=== PATIENT | male | born 1945 | race Caucasian/White ===

== ENCOUNTER 2021-04-13 10:27 | Emergency (ER) | payer OTHER, MEDICARE ==
[~2021-04-13] VITALS: Ht 182.9 cm; Wt 68.0 kg
--- NOTE | ~2021-04-13 | EMS ---
[facility] [address] [place] [address] EMS Patient Care Report Name: LIDIA SMITH Room #: REG FÉLIX Childers#: [id number] Admission: 04/13/21 Attend Phys: Discharge: Date of : 43 Report #: [id number] THIS REPORT FOR: //name// Report Transmitted: 04/13/2021 10:25 EMS Care Summary [facility] MED-ACT Incident [id number] @ 04/13/2021 09:51 Incident Location [address] [place] [address] Patient LIDIA SMITH Male, 75 Years 1945 Patient Address [address] [place] [id number] Patient History Dementia, Patient Allergies No known allergies, Patient Medications Citalopram, Buspar, Ativan, Chief Complaint aggressive toward staff Disposition Transported No Lights/[place] Dispatch Reason Psychiatric Problem/Abnormal Behavior/Suicide Attempt Transported To [facility] Narrative Staff said the pt has been aggressive since last night around 1999. They said he has been yelling and hitting the wall in his room, stating that he wanted to be left alone to . The staff said the behavior continued this AM, so they gave the pt "2.5mg of Ativan" around 0900. The pt's said the pt has [facility] [address] [place] [address] EMS Patient Care Report Name: LIDIA SMITH Room #: REG FÉLIX Childers#: [id number] Admission: 04/13/21 Attend Phys: Discharge: Date of : 43 Report #: [id number] dementia and is normally confused. She said he had a similar aggressive outburst a few months ago and was taken to the hospital where they added some medication to treat the aggressive behavior. She said he hasn't had any aggressive behavior until last night. The pt denied any pain. The said the pt's dementia was getting worse and that he is sometimes difficult to understand. The pt knew his name, and former profession. He was confused as to the day and year. The pt's initially wanted the pt transported to [facility]. I explained they were "high volume" and she then suggested transport to [place] for evaluation. The pt was standing in the hallway inside the facility. [facility] and PD were with the pt. HPI, PMH, Exam from [facility]. The pt sat on the cot. Vitals. Cot - unit. En route: Vitals. Biocom to [place]. No orders req'd/rec'd. The pt rested comfortably during transport with no abnormal behavior. He was moved to ER#4. Care released to staff. Initial Vitals @10:20P: 69,R: 16,BP: 100/57,Pain: 0/10,GCS: 14,SpO2: 98,Revised Trauma: 12, @10:06P: 68,R: 16,BP: 102/68,Pain: 0/10,GCS: 14,Temp: 98.5F,Glucose: 104,SpO2: 97,Revised Trauma: 12, Assessments @10:17MENTAL:Confused,Person Oriented,SKIN:HEENT:Head/Face: No Abnormalities,Neck/Airway: No Abnormalities,LUNG SOUNDS:General: No Abnormalities,ABDOMEN:General: No Abnormalities,PELVIS//GI:No Abnormalities,EXTREMITIES:Left Arm: No Abnormalities,Right Arm: No Abnormalities,Left Leg: No Abnormalities,Right Leg: No Abnormalities,PULSE:NEURO:No Abnormalities, Impression Behavioral/psychiatric episode Procedures @10:20Surgical Mask on PatientResponse: Unchanged Timeline 09:50,Call Received 09:50,Psap Call 09:51,Dispatched 09:52,En Route 09:59,On Scene 10:01,At Patient 10:06,BP: 102/68 M,PULSE: 68,RR: 16 R,SPO2: 97 Ox,ETCO2: ,B,PAIN: 0,GCS: 14, 10:09,Depart Scene 10:20,Surgical Mask on Patient,Response: Unchanged [address] [address] EMS Patient Care Report Name: LIDIA SMITH Room #: REG FÉLIX Childers#: [id number] Admission: 04/13/21 Attend Phys: Discharge: Date of : 43 Report #: [id number] 10:20,BP: 100/57 M,PULSE: 69,RR: 16 R,SPO2: 98 Ox,ETCO2: ,BG: ,PAIN: 0,GCS: 14, 10:22,At Destination 10:35,Call Closed Disclaimer v1.1 Copyright 2020 [employer] This EMS Care Summary contains data elements from the applicable legal record (which may be displayed differently). It is designed to provide pertinent information for the following purposes: continuity of care, clinical quality, and state data reporting. The complete legal record is available to ED staff and administrators of the receiving hospital in [employer]'s Patient Tracker. All data is provided "as is."
[2021-04-13 11:48] LABS: ABSOLUTE NEUTROPHILS 5.7 thou/uL (1.4-8.2); BASOPHILS 0.7 % (0.0-2.0); EOSINOPHILS 1.3 % (0.0-3.0); HEMATOCRIT 41.7 % (42.0-52.0); HEMOGLOBIN 13.9 gm/dL (14.0-18.0); LYMPHOCYTES 13.8 % (24.0-44.0); MCH 30.1 pg (26.0-34.0); MCHC 33.4 g/dL (28.0-37.0); MCV 90.1 fL (80.0-100.0); MONOCYTES 8.5 % (1.0-8.0); PLATELET COUNT 174 thou/uL (150-400); POLYS 75.7 % (36.0-66.0); RBC 4.63 mil/uL (4.50-6.00); RDW 13.9 % (10.5-14.5); WBC 7.5 thou/uL (4.0-11.0)
[2021-04-13 12:01] LABS: ANION GAP 5 mmol/L (7-16); BUN 14 mg/dL (7-18); CALCIUM 8.9 mg/dL (8.5-10.1); CHLORIDE 106 mmol/L (98-107); CO2 31 mmol/L (21-32); GLUCOSE 101 mg/dL (74-106); POTASSIUM 4.8 mmol/L (3.5-5.1); SODIUM 142 mmol/L (136-145)
[2021-04-13 12:07] LABS: ALBUMIN 3.6 g/dL (3.4-5.0); DIRECT BILIRUBIN < 0.1 mg/dL (<0.1-0.2); SGOT 19 U/L (15-37); SGPT 21 U/L (16-63); TOTAL BILIRUBIN 0.5 mg/dL (0.2-1.0)
[2021-04-13 14:51] LABS: URINE BILIRUBIN NEGATIVE (Negative); URINE BLOOD NEGATIVE (Negative); URINE CLARITY CLEAR; URINE COLOR YELLOW; URINE GLUCOSE-RANDOM* NEGATIVE (Negative); URINE KETONES NEGATIVE (Negative); URINE LEUKOCYTES-REFLEX NEGATIVE (Negative); URINE NITRITE-REFLEX NEGATIVE (Negative); URINE PROTEIN (DIPSTICK) NEGATIVE (Negative); URINE UROBILINOGEN 0.2 E.U./dl (0.2-1.0)
[2021-04-13 14:59] LABS: AMP/METHAMP Negative (Negative); BARBITURATES Negative (Negative); BENZODIAZEPINES Negative (Negative); COCAINE Negative (Negative); METHADONE Negative (Negative); OPIATES Negative (Negative); PCP Negative (Negative)
[2021-04-13 17:29] VITALS: BP 135/61
--- NOTE | 2021-04-14 07:11 | EKG ---
[place] [address] [place] [address] ELECTROCARDIOGRAM REPORT Name: LIDIA SMITH Room #: DEP Alvarado#: [id number] Admission: 04/13/21 Attend Phys: Discharge: 04/13/21 Date of : 43 Report #: [id number] [facility] ED Test Date: 2021-04-13 Test Time: 11:04:12 Pat Name: LIDIA SMITH Department: Room: Gender: M Track Laborer: fara : 1945 Requested By: Rebecca Diego Order Number: [id number] MD: Luisito Matos Measurements Intervals Micro Rate: 66 P: 70 NV: 177 QRS: 52 QRSD: 96 T: 28 QT: 414 QTc: 434 Interpretive Statements Sinus rhythm Probable left atrial enlargement Low voltage, extremity leads No previous ECG available for comparison Electronically Signed On 04-14-2021 7:11:15 CDT by Luisito Matos [email or web address] <ELECTRONICALLY SIGNED> By: Luisito Matos MD, [facility] 04/14/21 0711 1104 1104 Luisito Matos MD, FACC /EPI
== END 2021-04-13 17:41 ==
LOC: ER 10:27
PROVIDERS: Emergency Medicine
DX: G30.9 Alzheimer's disease, unspecified (principal); F02.81 Dementia in other diseases classified elsewhere, unspecified severity, with behavioral disturbance

== ENCOUNTER 2021-04-13 17:58 | Inpatient (IN) | payer OTHER, MEDICARE ==
[~2021-04-13] VITALS: Ht 167.6 cm; Wt 58.6 kg
--- NOTE | 2021-04-14 01:34 | NUR ---
EFE CARE WAS RESUMES AT 1900. HE IS ALERT AND ORIENTED. PT AMBULATES HE IS ALERT AND ORIENTED TO SELF. ABLE TO VERABLIZE NEED CONFUSSED AND HE DENIES PAINS/SI/AVH/HI. HE IS UNABLE TO FOLLOW CUES. MEDS WERE VERIFED WITH DR. JOINER. BED IS LOW , ALARMED AND LOCKED. THE [facility] WAS NOTIFIED AND SHE ALREADY CAME AND VISIT WITH EFE. CODY WAS ANXIOUS AND PACING AT THE EARLY PART OF THE SHIFT. RESTING NOW ON RECLINER IN THE DAY AREA.Q 12 MINUTES CHECK IS ONGOING. CONTINUE CARE AND MONITOR.
[2021-04-14 06:12] LABS: CHOLESTEROL 224 mg/dL (<200); HDL CHOLESTEROL 63 mg/dL (>40); LDL CHOLESTEROL 149 mg/dL (<100); TC:HDL 3.6 Ratio (Not establshd); TRIGLYCERIDE 61 mg/dL (<150); VLDL 12 mg/dL (<40)
[2021-04-14 06:17] LABS: SERUM ASSESSMENT Clear
--- NOTE | 2021-04-14 07:34 | NUR ---
Bow Stapler called [facility] while patient was being evaluated in the ED. [facility] indicated to lyric writer that they were not planning on keeping the patient. They told lyric writer that they had emailed the this information earlier in the day. I clarified that it was a 30 day notice. They affirmed.
[2021-04-14 08:52] VITALS: BP 128/66
--- NOTE | 2021-04-14 11:45 | NUR ---
Pt admit to [facility] with dementia w/behavioral disturbance. TSH 0.255, A1c pending. On B12 and psych meds. Refused bkft this morning, only meal provided since admit. BMI 20.3. Will add Ensure Enlive once daily for additional kcal and protein. Low nutrition risk with interventions in place.
--- NOTE | 2021-04-14 12:51 | NUR ---
PT PACING THROUGH UNIT FOR MAJORITY OF THE SHIFT. HAS EXTREME FLIGHT OF IDEAS. IS REDIRECTABLE. PT AFEBRILE, ADEQUATE UOP, 1 BM, APPROPRIATE APPETITE AFTER BEING ENCOURAGED. PT AND HAVE BEEN THOUROUGHLY UPDATED AND EDUCATED ON PT CONDITION AND POC. PT SLOWLY PROGRESSING TOWARDS POC.
--- NOTE | 2021-04-14 17:24 | NUR ---
1530 ASSUMED CARE OF PATIENT, PATIENT WANDERING HUDSON AND DAYROOM TALKING TO SELF. UNABLE TO UNDERSTAND PATIENT, PATIENT WITH FLIGHT OF IDEAS. 1720 PATIENT SITTING AT TABLE EATING DINNER FEEDING SELF. WILL CONTINUE TO OBSERVE
[2021-04-14 19:40] VITALS: BP 116/62
[2021-04-14 23:06] LABS: GLYCOHEMOGLOBIN (HGB A1C) 6.1 % (4.8-5.6)
[2021-04-15 09:03] VITALS: BP 150/75
--- NOTE | 2021-04-15 11:00 | NUR ---
APROACHED IN ROOM FOR AM MEDS-REFUSES MEDS-REFUSES TO COME OUT TO EAT BREAKFAST-APPEARS TO NOT UNDERSTAND VERBAL DIRECTION OR INFORMATION PROVIDEDBY NURSING [id number] OVER IN BED AND REFUSED TO CONVERSE WITH THIS NURSE ANY LONGER.APPROX 25 MINUTES LATER FOUND NAKED INSIDE A MALE PEERS ROOM-HAD URINATED ON FLOOR AND HAD BM IN BRIEF WHICH HE HAD REMOVED AND PLACED ON PEERA BED-WAS FOUND ATTEMPTING TO GET INTO BED WITH MALE PEERS AND WHEN STAFF ATTEMPTED TO STOP HIM FROM CRAWLING OVER SIDE RAIL INTO BED SWUNG AT NURSE WITH CLOSED FIST-REFUSES TO ALLOW INCONTINENT CARE AND REQUIRED ASSIST OF THREE STAFF TO CLEAN BM OFF OF PERINEAL AREA AND PUT ON CLEAN PANTS AND BRIEF.
--- NOTE | 2021-04-15 14:43 | NUR ---
REFUSES TO ALLOW STAFF TO ASSIST WITH AMBULATION OR TO USE ROLLER WALKER PROVIDED-GAIT IS UNSTEADY AND JUDGEMENT POOR-VERY IMPULSIVE-ATTEMPTING TO CRAWL OVER BACK OF COUCH AND WHEN STAFF ATTEMPTS TO INTERVENE APPEARS TO NOT HEAR VERBAL INSTRUCTIONS-ALSO TURNS HEAD TOWARD STAFF BUT STATES CAN'T SEE NURSE-WHEN ASKED ABOUT THIS STATES "HE HAS TUNNEL VISION-IT IS PART OF DEMENTIA" DR JOINER ON UNIT AND CONSULTED RE FALL RISK-REFUSAL TO FOLLOW FALLS PRECAUTIONS-OR SIT IN CHAIR- STATES WOULD PREFER WE USE ATIVAN VS LAP CHANEL TO RESTRAIN IN CHAIR. ATIVAN 0.5MG GIVEN PO PRN AT 1445 FOR INCREASED RESLESSNESS,AGITATION.CHAIR ALARM PLACED X3 SOON STAFF WALKS AWAY STANDS UP AND MOVES TO ANOTHER CHAIR WHEN STAFF ATTEMPTED TO EXPLAIN FALLS RISK AND OUR CONCERNS RE DARIEN STATES "I DON'T CARE GET IT AWAY FROM ME"
--- NOTE | 2021-04-15 14:47 | NUR ---
HALEY spoke with pt's who said [facility] did not give a set date in her email in which they dismissed pt from their facility. She said it simply says that pt cannot return. HALEY advised their are laws that govern how [place] are to proceed and asked if she would like SW to reach out to the [facility]. She said yes. HALEY also explained that she noticed in pt's chart that he has financial dpoa and living will docs, but not a healthcare dpoa doc. Kamilah said she has a copy of that doc and will bring it. HALEY contacted the [place] ombudsman office and was advised that Margret Choi is the ombudsman in that area and her number is [phone] and email is . HALEY called Margret. No answer. HALEY left a msg. HALEY emailed Margret and was advised that email was incorrect. HALEY Team will continue to follow pt during her stay on this unit.
[2021-04-15 21:00] VITALS: BP 139/75
[2021-04-16 09:38] VITALS: BP 124/70
[2021-04-16 10:01] VITALS: BP 124/70
--- NOTE | 2021-04-16 11:19 | NUR ---
1100 RESUMMED CARE FROM OVERNIGHT SHUFT THIS AM, PATIENT WANDERING AROUND DAY ROOM. PATIENT ALERT ORIENTED TO SELF ONLY PATIENT UNABLE TO TELL ME ABOUT SI/HI/AH/VH AT PRESENT. PATIENT HAS COGNITIVE DO PATIENT ATE BREAKFAST PATIENT SLAPPED HIS PILLS ONTO THE TABLE. I CRUSHED HIS MEDICATION AND HE TOOK THEM IN YOGART. PATIENTS ABDOMEN SOFT BOWEL SOUNDS PRESENT PATIENTS LUNGS CLEAR. PATIENT HAD VISIT WITH THE VISIT WENT WELL, PATIENT IS REDIRECTABLE WILL CONTINUE TO MONITOR PATIENT FR SAFETY AND BEHAVIORS.
[2021-04-16 20:33] VITALS: BP 135/73
[2021-04-16 21:42] VITALS: BP 135/73
--- NOTE | 2021-04-16 23:55 | NUR ---
At approximately 2278-0341 EVS notified nurse the pt was on the floor. Two nurses went and assessed the pt. Pt is alert but not oriented. Head to toe assessment completed, no visual bruising, moves all extremities, denies pain. Resistant to nurses getting him. Pt was able to adjust his weight and lift himself off of the floor, vital signs taken @2218 bp 103/61, 64, 18, 96.3, Vitals taken 1 hour later are 144/76, 74, 19, 96.3. PCT and nurse assisted pt to bed, Second dose of trazadone not given due to drowsiness and pt is now very unsteady on his feet. Xin TAVARES notified of non injury fall, recommend to continue monitoring him and to notify of any changes. Left a voice message for pt regarding fall.
--- NOTE | 2021-04-17 03:09 | NUR ---
04/16/21 - Pt is alert and disoriented, garbled phrases, very difficult to direct. Pt usually does pretty good with taking his medications. Today he was fixated on the medication cup even after he took his medications. Pt likes to wander the halls. Pt was offered a snack "ice cream" he initially wanted the snack but would not sit down to eat it. Pt was wandering into other pt rooms again very difficult to redirect. Pt after night medications was drowsy but was refusing to lay down or sit down. eventually about 2300 pt was okay with being put to bed and has been sleeping. requires frequent monitoring.
--- NOTE | 2021-04-17 07:49 | NUR ---
Returned telephone call to Marie pt spouse, initially thought she was calling about the pt's fall last night since I left a message last night. She states "no I didn't realized he had a fall" discussed what happened with this fall and that he wasn't hurt. Discussed that he was able to sleep. Spouse was concerned about his spitting up mucus and that it thick. 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 Pt also has a hx of chronic sinusitis. The mass I believe was discovered by the CT scan, would like pt to have CT scan of head. Discussed that I would relay this information the the
[2021-04-17 08:00] VITALS: BP 147/76
--- NOTE | 2021-04-17 15:55 | NUR ---
pt's requested to have the hospitalist call her. rn spoke with dr. llanes on his rounds and gave him them message. rn just spoke with pt's on telephone and updated her of dr. llanes's new orders. rn gave pt. update. pt's states she will be here to see the patient for visiting hours at 1600.
--- NOTE | 2021-04-17 16:04 | NUR ---
SW received a call from ANGÉLICA Knox with [employer] [phone] re: pt's status. SW provided a brief update. SW team will remain available while on this unit.
[2021-04-17 19:30] VITALS: BP 108/61
[2021-04-17 20:19] VITALS: BP 108/61
--- NOTE | 2021-04-18 00:46 | NUR ---
Assumed care on 04/17/21 @ 1900, ambulating with a steady gait, resists sitting down for personal safety, had a fall on 04/16, Silver score 65, high fall risk. Exit seeking and resists redirection. First Trazadone given @ 2100 and continues to be awake @ 2150, second dose of Trazadone provided, as scheduled and PRN Tylenol 650 for general discomfort. Continues to ambulate @ 22:30 and retires to bed @ aproximately 22:45. Bed in low position, bed alarm set, will continue to monitor for safety and comfort.
[2021-04-18 08:46] VITALS: BP 119/65
--- NOTE | 2021-04-18 13:07 | NUR ---
HALEY received a call from Shelby with [employer] who said in no way have they issued to pt a 30 day notice. She said their health care administrator was on leave when pt was sent out to the ED and advised staff that they will not be handling his case this way. They will be accepting pt back unless they cannot handle his behaviors they see in his updates. They will then identify new placement options. She did not have the fax number on her as she was out in the field so HALEY offered to send an email to her email at [email or web address]. Shelby will then respond with the fax number to receive updates. Her number is [phone]. HALEY contacted pt's and provided this update. Although she is not pleased with the facility, she said she is grateful that they have changed their opinion. HALEY reiterated the law to and her rights. She thank you. She also advised that pt hates ice cream, but loves chocolate. She advised that his meds be given in chocolate pudding. HALEY provided this update to pt's nurse. The email Shelby gave came back invalid. HALEY contacted Shelby who gave the email of [email or web address]. HALEY sent an email to her. HALEY Team will continue to follow pt during his stay on this unit.
--- NOTE | 2021-04-18 16:56 | NUR ---
Assumed pt care at 0700. pt was in the day room agitated. pt was confused, unable to answer assessment questions. disoriented x4. Assessments completed, vss. No sign of si/hi noted upon assessments. No sign of acute distress noted upon assessments. took med crushed with ice cream. pt spit some of his meds out. Pt was agitated and combative with staff. pt was redirected. pt continued to be disruptive with other pt. staff redirected pt and he got aggressive, hitting and kicking staff. At 1415 Dr Joiner was notified. 0.5mg PO order of Lorazepam was obtained and administered. AT 1550 pt BECAME AGGRESSIVE, HITTING AND KICKING STAFF. ALL efforts to redirected pt was abortive. IT TOOK 3 STAFF TO RESTRICT PT FROM HITTING STAFFS. DR JOINER was notified of pt behavior.1619 AN order of 0.25mg was obtained and administered. At this time pt is in the day room eating dinner. Will continue to monitor.
[2021-04-18 19:51] VITALS: BP 95/74
--- NOTE | 2021-04-18 23:44 | NUR ---
Assumed care on 04/18/21 @ 1900, in the day room, ambulates without a devise with a fairly steady gait. Noted to have a fall on 04/16, so is a high fall risk, with a Silver score of 65. Cooperated with assessment, VSS HRRR, Breath sounds CTA bilat, ABD sounds N x 4Q. Not able to answer mental health questions D/T dementia. Compliant with medication administration, ambulated to bedroom with x1 assist @ HS. Bed in low position, bed alarm set, will continue to monitor as per unit protocol.
[2021-04-19 09:23] VITALS: BP 130/69
--- NOTE | 2021-04-19 12:24 | NUR ---
Alert and orientated to name only. Denies SI/HI. Confused speech. Breath sounds clear. Reg HR auscultated. Color pink with brisk capillary refill and palpable peripheral pulses. No edema noted. Brief dry. Active bowel sounds over soft, flat abdomen. No behaviors noted this AM. here visiting. Appropriate questions and concerns.
--- NOTE | 2021-04-19 17:38 | NUR ---
Phone message from Pt's , Marie Flower Phone call with Mrs. Flower. Mrs. Flower is working with an advocate in the search for a new placement for her . Mrs. Flower is concerned that although the current placement, [facility], has caring staff, administration does not communicate with her. Mrs. Flower is overwhelmed but would like for additional placement options to be provided to her. Email to Mrs. Flower ([email or web address]) with additional placement options as well as Medicare.gov and [facility] websites.
[2021-04-19 19:52] VITALS: BP 124/72
--- NOTE | 2021-04-20 05:57 | NUR ---
04-19-21 CARE TRANSFERRED 1900 OBSERVED PT SITTING IN RECLINER IN DAY ROOM. LATER PT AAOX1, VSS, RR EVEN AND NONLABORED ON RA, PT LUNG SOUNDS CLEAR/DIMINISHED, HT RR, ABD ACTIVE AND SOFT. PT DENIES PAIN AND SEEN ZERO S/S OF PAIN. OBSERVED NO SI/HI BEHAVIORS. PT HAS REMAINED CALM AND COOPEATIVE THROUGHOUT NURSING ASSESSMENT. DURING MEDICATION ADMIN PT HAD NO DIFFICULTIES TAKING MEDICATION CRUSHED IN PUDDING. PT WILL CONTINUE TO BE MONITOR PER [facility] PROTOCOL.
[2021-04-20 08:29] VITALS: BP 114/60
--- NOTE | 2021-04-20 11:14 | NUR ---
RT Progress Note- Antonio' participation in the milieu and recreation therapy groups has been very minimal since admission. While Antonio has been passively present in groups, he is unable to engage d/t poor focus and inability to follow tasks. Antonio has not been accepting of 1;1 attempts for independent leisure at this time. OVERHEAD CRANE INSPECTOR will continue to encourage Antonio' passive participation efforts and will provide independent leisure as he tolerates.
--- NOTE | 2021-04-20 19:30 | NUR ---
PATIENT'S (SHE SMITH) NOTIFIED ON NUMBER [id number], AND NOTIFIED OF THE SUSPENSION OF THE MORNING VISITATION AFTER TOMORROW RELATED TO THE COVID SURGE IN THE COMMUNITY PER HOSPITAL PROTOCOL.
--- NOTE | 2021-04-20 19:48 | NUR ---
TOOK AM DEPAKOTE SRINKLES MIXED WITH ICE CREAM 0900 ATIVAN 0.5 CRUSHED AND WATER PUT IN PILL TRACTOR TRAILER TECHNICIAN D/T VERY SMALL AMOUNT OF MED AFTER BEING CRUSHED IN ATTEMPT TO ENSURE THAT PT GOT FULL DOSE-DID START TO SWALLOW WHEN GIVEN BUT THE SPIT OUT ONTO FLOOR. AT 1050 ALERTED BY FORMULA WEIGHER PT HAD INCREASED AGITATION AND RESTLESSNESS-GFETTING UP AND DOWN AND ATTEMPTING TO WALK ON OWN WHEN FORMULA WEIGHER WAS WALKING WITH HIM TO BATHROOM HE BEGAN TO YELL THAT HE DID NOT WANT HER ASSISTANCE AND STRUCK HER ,ALSO STRUCK 2ND DYED YARN OPERATOR WHO ARRIVES TO OFFER ASSISTANCE-SECURITY CONTACTED AND ATTEMPTING TO HIT AND BITE SECURITY GUARDS DR JOINER CONACTED AND GIVEN ATIVAN 0.25 MG IM AT APPROX 1200. LITTLE IMPROVEMENT NOTED IN BEHAVIORS AFTER IM GIVEN-AND CONTINUED THROUGHOUT REST OF PM TO REQUIRED CONSTANT SUPERVISION TO PREVENT FROM GETTING UP ON OWN-ALL FALL PRECAUTIONS IN PLACE INCLUDING CHAIR ALARM-YELLOW TSHIRT ETC. VS STABLE-APPETITE POOR-REQUIRES FEEDING AT MEALS -SITS WITH EYES CLOSED AND WILL NOT OPEN THEM DESPITE STAFF ASKING HIM TO. WILL AT TIMES RESPOND APPROPRIATLY BUT CONVERSATION FOR MOST PART IS RAMBLING AND NON-GOAL DIRECTED AND DID APPEAR TO BE RESPONDING TO AUDITORY HALLUCINATIONS APPEARS TO BE TALKING TO UNSEEN OTHERS INCLUDING HIS MOTHER AND FATHER. IS ATAXIC WHEN UP WALKING FALLS PRECAUTIONS IN PLACE. WAS COMBATIVE
[2021-04-20 20:03] VITALS: BP 124/64
[2021-04-21 06:00] LABS: ALBUMIN 3.3 g/dL (3.4-5.0); CALCIUM 9.1 mg/dL (8.5-10.1); CREATININE 0.9 mg/dL (0.7-1.3); POTASSIUM 3.9 mmol/L (3.5-5.1); TOTAL BILIRUBIN 0.5 mg/dL (0.2-1.0); TOTAL PROTEIN 6.9 g/dL (6.4-8.2)
[2021-04-21 10:09] VITALS: BP 128/63
--- NOTE | 2021-04-21 13:14 | NUR ---
Alert and orientated to name only. Denies SI/HI. Resistant to getting out of bed and then when he stood he was off the bed but remained in a seated position and was resistant to sitting in chair. He finally sat in chair with alot of direction and encouragement. Breath sounds clear. Reg HR auscultated. Color pink with brisk capillary refill and palpable peripheral pulses. Brief dry. Active bowel sounds over soft, flat abdomen. Attempted to finisher hand day room and was unsteady. When attempted to be redirected by SENIOR HR MANAGER he became combative and was placed back in chair by 3 staff members as reported by RN Kody. Brought out of day room when he calmed down for approximately 10 min and then attempted to get out of chair and sit on leg rest. Required alot of assistance and redirection to ambulate first to bathroom where he refused to sit down and then to his bed. Dr Pascal notified. 0.25 mg Ativan given IM per R deltoid per order. Sleeping without s/o distress. here visiting requesting to see pt. Explained situation and she requested that a cool cloth be placed on his forehead prior to interacting with pt as that would calm him down. Explained that instances of him becoming combative were spontaneous and that he was very cooperative with meds and nasal spray this AM. Explained that I could let her see pt but that visitors needed to be supervised in pt rooms. She stated that Rajwinder had let her in pt room the previous day. Spoke with Rajwinder and compromise was that she could visit with supervision since this was last day of visiting d/t rise in [facility]. She visited for approximately 45 min as pt slept. Left note for Dr. Pascal. At approximately 1200 went to room to get chair and pt was sitting at foot of bed and attempting to tip over chair. Escorted to dining room with walker and some assistance. Ate part of lunch independently before falling asleep.
--- NOTE | 2021-04-21 13:38 | NUR ---
Nutrition: at follow up pt noted to have poor appetite and requiring feeding. Intake appears fair-good, avg of at least 50-75% recent meals, 100% of recent snacks/supplement recorded. No new wt this week. Albumin 3.3. Meds reviewed. Last BM 04/17. Continue POC>. Assess at low nutrition risk at this time. Recommend obtain/record current wt.
--- NOTE | 2021-04-21 17:36 | NUR ---
Phone message received from Alona Mundo ([phone]). The SW spoke to Mrs. Flower in person regarding the pt. Mrs. Flower requested hospice information be emailed to her. Email received from Darian Tam, advocate for Mrs. Flower, requesting a time to schedule a conference regarding discharge for the pt.
--- NOTE | 2021-04-22 05:11 | NUR ---
04-21-21 CARE TRANSFERRED 0 OBSERVED PT SITTING IN DAY ROOM. LATER PT AAOX1, PT REFUSED VS, PT DENIES SI/HI AND PAIN, BUT OBSERVED PT FACICAL GRIMMENCING AND RESTLESS AND IRRITABLE. OBSERVED NO SI/HI BEHAVIORS. LATER PT BECAME AGITATED AND GRABBING AND HITTING STAFF, HCP CONTACTED AND ORDERS RECEIVED AND ADMIN. PT THEN WAS MEDICATION COMPLIANT AND HAD NO DIFFICULTIES TAKING CRUSHED IN YOGURT, PT ATE 50% AND 100% OF HS SNACK. LATER NOTED PT WAS CALMER AND PT WAS REPOSITION IN BED, LOWEST POSITON, LOCKED AND ALARM ON. LATER PT RESTLESS AND IRRITABLE DURING CARES, AND PT WAS REPOSITION AND BROUGHT TO DAY ROOM. PT DENIED PAIN, BUT NOTED S/S OF PAIN WITH RESTLESSNESS AND FACIAL GRIMMENCING. OF NOTE, Max JOINER MD REPORTED THAT PT DOES NOT WANTED PT ON TRAMADOL AND REQUESTED THE LOWER DOSAGE ON ATIVAN. PT WILL CONTINUE TO BE MONITOR PER [facility] PROTOCOL.
[2021-04-22 10:24] VITALS: BP 131/77
--- NOTE | 2021-04-22 16:54 | NUR ---
Assumed patient care by 0700, sitting in the dayroom quiet, ate breakast, vss, lungs clear, bs active, took medication crushed. patient's called for update "said I don't want him put on or taking pain medication, he has never complained of pain". slept most of the day on the chair, pericare done, no si/hi was observed, unable to verbalized needs. will continue to monitor patient.
--- NOTE | 2021-04-22 17:23 | NUR ---
Email received from Shelby of [facility] requesting update for pt. Return email sent stating updates will be faxed today. Shelby (ph: [phone]) also left a message requesting the updates be sent by 11:30am as she has a phone call with the pt.'s . The SW called Shelby and gave a v verbal update on the pt. The SW informed Shelby the updates will also be faxed. Fax sent to Shebly at [facility] - Nursing notes and medication update for the pt. Email from pt's , Marie Flower, stating the SW did not need to send any hospice recommendations as she had selected [facility]. Email also stated that Darian Tam, senior clinical study manager, would get in touch. The SW replied to Marie's email and let her know that the SW would get in touch with Mr. Tam. Email to Mr. Tam regarding the pt and scheduling a time to conference. Phone call from Mr. Tam and Marie Mundo. Both were informed that it did not appear that the pt. had had any noted displays of aggression today. Mr. Tam and Mrs. Flower will follow up with the SW, Sheryl.
[2021-04-22 19:12] VITALS: BP 138/68
--- NOTE | 2021-04-22 23:14 | NUR ---
Patient care assumed at 1900, patient sitting in gerichair in day room at that time. Took meds crushed in ice cream without difficulty. No c/o pain or discomfort. Patient taken to bed, incontinent of urine, annabelle care provided and new brief applied. Made comfortable in bed, and then became restless and attempting to get out of bed unassisted. Assisted back into gerichair and brought out to day area beside staff. Patient resting with eyes closed at this time.
[2021-04-23 08:00] VITALS: BP 129/72
--- NOTE | 2021-04-23 11:32 | NUR ---
PATIENT CARE ASSUMED 0700, IN HIS ROOM SLEEPING REFUSED TO COME OUT FOR BREAKAST,VSS, LUNGS CLEAR, BS ACTIVE,RR EVEN NONLABORED ON ROOM AIR, ALERT AND DISORIENTED TO PLACE, DAY AND TIME, TOOK HIS MEDICATION CRUSHED AND MIX WITH APPLE SOURCE. PATIENT IS INCONTINENT OF BM AND URINE, HIS CALLED FOR UPDATE, HE DENIES SI/HI, WILL COTINUE TO MONITOR.
--- NOTE | 2021-04-23 18:33 | NUR ---
Patient was combative and was punching staff, droctor was contacted, one time order of Geodon 0.75ml given, patient was calm and fell asleep 15mins after the im.
[2021-04-23 19:22] VITALS: BP 131/69
--- NOTE | 2021-04-23 23:15 | NUR ---
RESUMED PATIENT CARE AT 1900, PATIENT SITTING IN JORGE CHAIR IN DAY AREA. TOOK MEDS CRUSHED IN ICE CREAM WITHOUT DIFFICULTY, PATIENT QUIET AND SLEEPY. PLACED IN BED AND PROVIDED PERICARE. NO BEHAVIORS NOTED THIS EVENING. WILL MONITOR.
[2021-04-24 09:40] VITALS: BP 125/73
--- NOTE | 2021-04-24 12:29 | NUR ---
PATIENT CARE ASSUMED AT 0700- APPROACHED IN ROOM BUT WAS SLEEPING SOUNDLY. WOULD NOT RESPOND WHEN ATTEMPTED TO AROUSE FOR BREAKFAST AND MORNING MEDICATIONS. AWKE AROUND 10 AM AND ESCORTED TO [place] [place]. ATE VERY LITTLE - MEDICATIONS GIVEN AT THIS TIME CRUSHED IN VANILLA PUDDING. TOLERATED WELL - BECAME RESTLESS IN CHAIR AND TRIED TO CLIMB OUT OF IT. BECAME IRRITATED WHEN ATTEMPTIG TO REDIRECT - FINALLY SETTLED DOWN ONCE AGAIN - PATIENT CONFUSED - ALERT TO SELF - UNABLE TO UNDERSTAND REDIRECTION. THOUGHT PROCESSES SCRAMBLED RAMBLING ON - SPOKE WITH WHO CALLED IN INTERIM. WAS UPSET WITH ADMINISTRATION OF GEODON NIGHT BEFORE FOR COMBATIVENESS - ADVISED WOULD LET DR. JOINER KNOW TO CONTACT HER ON Sunday04/25/21 - PATIENT CURRENTLY IN [facility] [place] SITTING QUIETLY IN JORGE CHAIR. WILL CONTINUE TO MONITOR FOR SAFETY AND AGITATION AND ADDRESS ACCORDINGLY.
[2021-04-24 19:41] VITALS: BP 109/92
[2021-04-24 20:20] VITALS: BP 109/92
--- NOTE | 2021-04-25 03:29 | NUR ---
PATIENT SAT UP IN JORGE CHAIR AT A TABLE THIS EVENING. HE HAS BEEN CALM FOR THE MOST PART THIS EVENING. HE DID GET COMBATIVE WITH CARES AT ONE POINT AND WAS YELLING AND HITTING STAFF. PATIENT WAS RESTLESS AT THIS POINT AND STAFF X 2 WALKED PATIENT AROUND THE UNIT 3 TIMES AND BACK TO JORGE CHAIR. THIS DID HELP TO CALM HIM. PT WAS LATER TAKEN TO ROOM AROUND 2AM FOR INCONTINENCE CARE AND TO BE LAID DOWN FOR BED. NO COMBATIVENESS THIS TIME. MOISTURIZING CREAM APPLIED TO INNER THIGHS WHERE SCROTUM IS RUBBING AND SHOWING SLIGHT REDNESS. PT HAS BEEN SLEEPING IN ROOM SINCE 0200 WITH ROUTINE ROUNDS AND INCONTINENCE CHECKS. PT TOOK HIS MEDS CRUSHED IN PUDDING. NO SIGNS OF SI/HI/AVH NOTED. PT IS A/0X1. CONTINUING TO MONITOR.
[2021-04-25 08:53] VITALS: BP 90/65
--- NOTE | 2021-04-25 16:44 | NUR ---
HALEY and Dr. Wilkinson contacted pt's Marie and provided to her an update including pt's behaviors and medication regimen. She voiced her concerns about pt getting Geodon on Sunday. HALEY explained to her that pt was punching staff and that they cannot allow pt's to be dangerous or unsafe on this unit. Dr. Wilkinson discussed with her meds that can help pt and control his aggression. Marie said that pt has tried Seroquel and had an adverse reaction to that med. Dr. Wilkinson agreed that he will try an increase in Depakote, and if that does not show improvement in a day or 2 then he plans to begin him on Olanzipine. He said that if it does not work he will then move to [facility]. He explained how anti-psychotics can help people dementian; including those suffering from Lewy Body. HALEY also explained that placement is not likely to accept pt unless he is properly medicated. She said ok. SW agreed to do a zoom meeting on Sun so she can interact with her . HALEY sent her an email with a 11am meeting time. HALEY received a call from [facility] asking for discharge plans. HALEY explained he is not ready and she is not sure that pt will qualify for hospice The rep agreed and said she reviewed pt's dx and knew he would need more markers to qualify for services. Allan Kan asked HALEY to fax a referral to [phone]. HALEY team will continue to follow pt during his stay on this unit.
--- NOTE | 2021-04-25 17:40 | NUR ---
Assumed pt care at 0700. Pt was alert and oriented to self. confused, combative, hitting and kicking staff. Unable to assess si/hi. No sign of si/hi noted. No c/o pain at this time. Staff assisted pt with meals. Pt ambulates with a terry chair. Med were crushed, mixed with pt oat meal. No sign of acute distress noted upon assessments. at 1700, pt was uncooperative with care. pt was aggressive hitting and pulling on staff hair. 1732 Dr carr was notified. Geodon 10mg IM was obtained and administered for aggression and combative behavior. At this time pt is sitting in the day room clean. Will continue to monitor.
[2021-04-25 19:52] VITALS: BP 149/86
--- NOTE | 2021-04-25 21:58 | NUR ---
PATIENT CARE ASSUMED AT 1900. PATIENT IN GERICHAIR IN DAY AREA, AWAKE, RELAXED. PATIENT'S MEDS GIVEN CRUSHED IN ICE CREAM, TOOK WITHOUT DIFFICULTY AND FED THE REMAINDER OF THE ICE CREAM. NO S/S OF DISTRESS OR DISCOMFORT. PATIENT HAS HAD NO COMBATIVENESS/AGGRESSION THUS FAR THIS EVENING. WILL CONTINUE TO MONITOR.
[2021-04-26 09:35] VITALS: BP 118/69
--- NOTE | 2021-04-26 12:38 | NUR ---
PATIENT CARE ASSUMED AT 0700 - PATIENT IN BED SLEEPING AT THIS TIME. UNABLE TO AROUSE. PATIENT SLEPT TILL AFTER 11 AM AND THEN ADMINISTERED SCHEDULED SEROQUEL ALONG WITH MORNING MEDICATIONS. TOLERATED WELL IN PUDDING. PATIENT THEN ASSISTED UP FOR LUMCH. KEPT EYES CLOSED - REFUSED TO EAT - VERY DIFFICULT - TALKED TO SELF AND WAS REACHING AROUND - TRYING TO REACH FOR UNSEEN OBJECTS. CONSUMED ONLY 10 PERCENT OF HIS LUNCH AND THAT WAS WITH ALOT OE ENCOURAGEMEN. PATIENT VERY SLEEPY - SITING IN JORGE GUIDO WITH EYES CLOSED. TOOK FEW SIPS OF APPLEJUICE BUT THAT WAS ALL STAFF WAS ABLE TO FEED TO HIM. WILL CONTINUE TO MONITOR PATIENT FOR SAFETY AND ENCOURAGE DRINKING AND EATING AND ADDRESS ANY CONCERNS THAT PATIENT MAY HAVE ACCORDINGLY.
--- NOTE | 2021-04-26 14:08 | NUR ---
RT Progress Note- Antonio has not been an active member of the milieu or recreation therapy groups since his admission to the unit. Antonio is unable to maintain focus in larger settings and struggles to complete tasks as directed. When approached for 1;1 leisure, Antonio does not maintain conversation or eye contact. CODING COMPLIANCE SPECIALIST will provide appropriate sensory activities and offer leisure as he tolerates.
--- NOTE | 2021-04-26 17:46 | NUR ---
HALEY and Dr. Wilkinson contacted Mrs. Alona Flower via phone. Mrs. Flower expressed during this call that the pt. would not be [facility]. She stated she had worked everything out with the SW, Sheryl, and that the pt. would be moved to either [facility] or [facility]. When questioned by Dr. Wilkinson about which place had accepted him, Mrs. Flower acknowledged not having visited [facility] and that [facility] had not seen the pt. at this time. The SW stated she would send referrals to those facilities; however, Mrs. Flower stated that Mr. Tam, advocate, would handle everything. Dr. Wilkinson reviewed medication with Mrs. Flower and the plan moving forward. Email from Mrs. Flower inquiring about virtual visitation scheduled for tomorrow and if her daughter would be able to attend. The SW replied back that the SW, Sheryl, would send a zoom link and that the daughter would be able to attend and would just need the link. A voice message was received from Alona Flower. An email was later received thanking for the return email. Mrs. Flower further stated in the email that she would need a nuerologist LOLLY for the pt. and that Dr. Wilkinson letting her know that a neurologist not being assigned is unacceptable for her. HALEY forwarded Mrs. Flower' email to Dr. Wilkinson, Rajwinder Chairez and Sheryl Dean.
[2021-04-26 19:53] VITALS: BP 135/74
--- NOTE | 2021-04-26 22:33 | NUR ---
PATIENT CARE RESUMED AT 1900, SITTING IN JORGE CHAIR AT THAT TIME. NO S/S OF DISTRESS OR DISCOMFORT, QUIET, APPEARS RELAXED. RESPONDS VAGUELY TO ASSESSMENT QUESTIONS, DENIES PAIN. TOOK MEDS CRUSHED IN ICE CREAM, NO DIFFICULTY. NO BEHAVIORS NOTED THIS EVENING. ABLE TO FOLLOW SHORT SIMPLE COMMANDS TO SOME DEGREE, BUT NOT ALWAYS. ON Q12 MINUTE SAFETY CHECKS AND FALL PRECAUTIONS.
[2021-04-27 09:26] VITALS: BP 130/67
--- NOTE | 2021-04-27 11:27 | NUR ---
HALEY set up a Zoom meeting for pt to complete with his and daughter today. HALEY was updated by [facility] Director that she and Dr. Wilkinson will be meeting with Marie and her sister today at 1300. HALEY team will continue to follow pt during her stay on this unit.
--- NOTE | 2021-04-27 12:50 | NUR ---
PATIENT WAS IN BED ASLEEP WHEN CARE ASSUMED, WHEN AWAKEN, HE WAS ASSISTED TO THE DAYROOM BY STAFF FOR BREAKFAST. HE CONSUMED 75% BREAKFAST WITH STAFF ASSIST. PATIENT TOOK MORNING MEDICATION CRUSHED IN ICECREM WITH NO DIFFICULTY. PATIENT IS FORGETFUL, PLEASANTLY CONFUSED, MUMBLES WORDS, RESPONDS TO INTERNAL STIMULI, TALKS TO SELF, AND UNSEEN OTHERS. HE DENIES SUICIDAL IDEATION, UNABLE TO APPROPRIATELY RESPOND TO FURTHER ASSESSMENT QUESTIONS DUE TO CONGNITIVE IMPAIRMENT. INCONTINENT CARE PROVIDED BY STAFF. AFFECT IS FLAT/BLUNTED, MOOD IS EUTHYMIC. NO AGITATION OR AGGRESSIVE BEHAVIOR NOTED AT THIS TIME. NO SIGN OF ACUTE DISTRESS NOTED, WILL CONTINUE TO REDIRECT, AND MONITOR FOR SAFETY.
--- NOTE | 2021-04-27 15:23 | NUR ---
Met with patient's and sister along with Dr. Wilkinson todiscuss patient's treatment goals, options and dicharge plans. had brought a list of questions and requests. She was requesting that a neurologist be consulted on the patient. Dr. Wilkinson explained that he was not going to do this as there was not a specific reason to consult one. She was not in agreement, but understood. 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 I will have a sign placed in patient room requesting he is wearing his glasses at all times. will order a PT consult to explore the possibility of his being able to walk. If gait is too impaired, this may not be a possibility and this was explained to .Dr. Moreno reviewed the medications he was on and made some changes. An OT consult was declined. Discussion about moving forward with possible d/c date and referrals with explanation of holding off until there was at least 72 hours of no behaviors. voiced understanding.
[2021-04-27 20:18] VITALS: BP 123/71
--- NOTE | 2021-04-28 04:25 | NUR ---
PATIENT CARE RESUMED AT 1900, PATIENT SITTING IN DAY AREA AT THAT TIME, WEARING GLASSES. QUIET AND RESTLESS. PATIENT LATER ASSISTED TO BED, PROVIDED LANNY CARE - INCONTINENT OF BOWEL AND BLADDER. PATIENT BECAME RESTLESS IN BED AND BROUGHT BACK INTO THE DAY AREA FOR CLOSE SUPERVISION PATIENT IS IMPULSIVE AND DOES ATTEMPT TO GET UP WITH VERY UNSTEADY WEAK GAIT. PATIENT AGAIN TRIALED BACK IN HIS BED, BUT AGAIN BECAME RESTLESS AND BROUGHT BACK OUT TO DAY AREA WHERE HE HAS REMAINED RELAXED AND QUIET IN JORGE CHAIR. IT SEEMS HE DOES BETTER WHEN AROUND OTHER PEOPLE THAN BY HIMSELF. Q12 MINUTE SAFETY CHECKS AND FALL PRECAUTIONS.
--- NOTE | 2021-04-28 09:23 | NUR ---
Nutrition follow up: Remains on [facility] with dx Alzheimer's dementia. Decline noted in recent weeks, requires assist with all meals. Staff with cueing, encouragement and physical feeding. Pt noted distracted at meals, not easily redirected and refuses intake. 25-75% variable intakes recorded for meals. Ensure enlive at all meals, good intakes of supplement noted. Noted 2 new meds started 04/26, both with possible side effects of increasing appetite/weight gain. Physician's progress notes report good candidate for comfort care or hopsice, but family not agreeable at this time. Plans to d/c 05/03 to [facility] if clinically able. Will continue at low nutrition risk with interventions in place.
[2021-04-28 09:30] VITALS: BP 134/76
--- NOTE | 2021-04-28 14:23 | NUR ---
Alert and orientated to name only. Denies SI/HI. Resistant to cares at times refusing to stand and holding on to staff limbs. Did ambulate with walker with PT but then was resistant to getting briefs changed requiring 3 staff to assist pt. Took meds crushed in yogurt but refused cough med. Breath sounds clear. Reg HR auscultated. Color pink with brisk capillary refill and palpable peripheral pulses. No edema noted. Incontinent of yellow urine and small brown soft stool. Active bowel sounds over soft, flat abdomen. Buttocks slightly pink, zguard applied. Sitting in gerichair without s/o distress.
--- NOTE | 2021-04-28 15:33 | NUR ---
HALEY faxed updates to [facility]. HALEY team will continue to follow pt during his stay on this unit.
[2021-04-28 16:28] VITALS: BP 100/86
--- NOTE | 2021-04-29 02:23 | NUR ---
PATIENT CARE WAS RESUMED AT 1900. HE WAS AT THE TABLE IN THE DINING ROOM. LUNGS ARE CLEAR BS IS ACTIVE X4 QUADS. HE C/O PAINS TO HIS ABD PRN PAIN MEDS WERE GIVEN WITH GOOD EFFECT. HE DENIES SI AND UNABLE TO RESPOND TO THE REST OF THE QUESTION. BED IS LOW, LOCKED AND ALARMED. PATIENT WAS SPITTING OUT AFTER TAKNIG HIS COUGH SYRUP. MAX ASSIST WITH TRANSFER AND PER-CARE. Q 12 MIUTES CHECKS ARE ON GOING CONTINUE CARE.
[2021-04-29] MEDS ORDERED: DEPAKOTE SPRIN125 MG PO (09:02)
[2021-04-29] MEDS ORDERED: CLARITIN10 MG PO (09:02)
[2021-04-29] MEDS ORDERED: SEROQUEL 25 MG25 M1 PO (09:03)
[2021-04-29] MEDS ORDERED: EAR DROPS15 ML OTIC (09:04)
[2021-04-29] MEDS ORDERED: FLORANEX GRANU1 EACH PO (09:06)
[2021-04-29] MEDS ORDERED: NP THYROID30 MG PO (09:06)
[2021-04-29] MEDS ORDERED: LIDOPATCH1 EACH TRANSDERM (09:07)
--- NOTE | 2021-04-29 10:46 | NUR ---
HALEY D/C NOTE SW faxed discharge documents to [facility]. SW will file documents in pt's hospital file. No other needs for SW team to address at this time.
--- NOTE | 2021-04-29 13:23 | NUR ---
Patient care assumed 0700, sitting at the day room, ate breakfast, assessment completed lungs clear to auscultaion, bs active, patient refused medication, alert and disoriented to place, time and date. patient got discharged 11:15am to [facility], called the facility 3 times to give report but they have not call back yet, also called his and left a message.
--- NOTE | 2021-04-30 23:08 | D ---
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 MEDICAL COMORBIDITIES: As follows, recurrent sinusitis, treated with Augmentin; chronic low back pain, treated with Lidoderm patch. Possible hypothyroidism, euthyroid on thyroid function studies. Near the end of the admission, we did institute Welch Thyroid at 30 mg daily, hyperlipidemia. The patient is discharged and instructed for cognitive memory care, psychiatric medical care by receiving facility. DISCHARGE MEDICATIONS: As follows: Loratadine 10 mg oral daily for allergic rhinitis, Depakote sprinkles 500 mg oral twice daily, Seroquel 25 mg oral 3 times a day for psychosis, Debrox drops twice daily to affected ears until resolution of cerumen impaction, Probiotic granules packet 1 packet oral daily for bowel health, Welch Thyroid that is desiccated thyroid hormone 15 mg daily, Lidocaine patch transdermal daily 12 on, 12 off. The patient is max assist for bathing, dressing, assisted feedings. LABORATORY DATA: Significant laboratories this admission, last electrolytes were done on 04/21/2021, sodium 144, potassium 3.9, chloride 105, bicarbonate 31, anion gap 8, BUN 15, creatinine 0.9, estimated GFR 82, glucose 76, calcium 9.1, total bilirubin 0.5, AST 19, ALT 20, alkaline phosphatase 59. Ammonia less than 10. Total protein 6.9, albumin 3.3. Free T4 1.0, total T3 of 76. Lipids: Total cholesterol 224, LDL 149, HDL 63. Hemoglobin A1c 6.1. Hematology on admission: White count 7.5 on 04/13/2021, H and H 13.9 and 41.7, platelet count 174. Urinalysis negative. Illicit substances, her urine drug screen was negative. COVID-19 serology negative on 04/28/2021 for the Taylor test. REASON FOR ADMISSION: Back on mid March as follows: A 75-year-old [address] [address] DISCHARGE SUMMARY Name: LIDIA SMITH Room #: 527A-A [facility] IN ..#: [id number] Admission: 04/13/21 Attend Phys: Sindhu Pascal MD Discharge: 04/29/21 Date of : 43 Report #: [id number] male sent out from [facility]. Apparently, the patient had previous psych admission at [facility] 4 months ago. Five week ago, he started having increased agitation last night and this morning became worse. He was knocking on doors. Staff reported he was "violent." HOSPITAL COURSE: The patient was admitted to Geriatric Psychiatry Unit. He was initially cared for by Dr. Pascal. I was on vacation. initially did not want antipsychotics used, Ativan was used when I assumed this case. There is not adequate progress. His Depakote level was low. Discussed with the , we would need to utilize Seroquel. I also discussed the need to titrate medication effectively. Depakote level was 44 on 04/22/2021, repeat on 04/29/2021 on date of discharge was 83. Unfortunately, there was a decline in gait and activity level given the advanced stage of the Lewy body disease, this was unfortunately just to be the best we can do. The had a very difficult time understanding as we had a telephone meetings, in person meetings, limited improvement in the 's satisfaction. The , Marie did have a number of calls requesting a look at anything from neurology consultation, occupational therapy consultation. Many of her request I did not find to be clinically beneficial. I did agree to physical therapy consultation that was performed. The patient would not cooperate with PT treatment. At the day of discharge, the patient was not suicidal or homicidal. He did have some resistance with changing his clothes but this was chose to be baseline. VITAL SIGNS: On day of discharge, temperature 37.3, pulse 78, respirations 19, O2 sat 97%. MUSCULOSKELETAL EXAM: Seated in a Inge chair, wearing glasses. frail appearing MENTAL STATUS EXAMINATION: Well-developed, ill-appearing male. Attention and concentration impaired. Speech, soft and intermittent, nonsensical frequently. No self-injurious behavior. Mood and affect were constricted, congruent. Memory known to be impaired. Insight is impaired, judgment is impaired. Fund of knowledge well below average. Prognosis for this patient is poor, will likely meet hospice criteria in the near future. Advised the Hospice if he stopped eating consistently. Greater than 45 [facility] [address] [place] [address] DISCHARGE SUMMARY Name: LIDIA SMITH Room #: 527A-A [facility] IN M.R.#: [id number] Admission: 04/13/21 Attend Phys: Sindhu Pascal MD Discharge: 04/29/21 Date of : 43 Report #: [id number] minutes was spent on discharge activities today. I did speak with the nurse at the assisted. I spoke with after discharge and others. <ELECTRONICALLY SIGNED> By: Calin Wilkinson DO 04/30/21 [id number] Calin Wilkinson DO /nt
== END 2021-04-29 11:15 | DRG 57 ==
LOC: SBH 17:58
PROVIDERS: ADMIT Psychiatry & Neurology Psychiatry; ATTEND Psychiatry & Neurology Psychiatry
DX: G31.83 Neurocognitive disorder with Lewy bodies (principal); F01.51 Vascular dementia, unspecified severity, with behavioral disturbance; F02.81 Dementia in other diseases classified elsewhere, unspecified severity, with behavioral disturbance; Z20.822 Contact with and (suspected) exposure to COVID-19; J32.9 Chronic sinusitis, unspecified; Z66 Do not resuscitate; G89.29 Other chronic pain; M54.5 Low back pain; E03.9 Hypothyroidism, unspecified; E78.5 Hyperlipidemia, unspecified; F41.9 Anxiety disorder, unspecified; G30.9 Alzheimer's disease, unspecified; Z79.899 Other long term (current) drug therapy; Z91.83 Wandering in diseases classified elsewhere
CPT/HCPCS: 10880